=== PATIENT | female | born 1975 | race Caucasian/White ===

== ENCOUNTER 2018-05-30 02:47 | Emergency (ER) | payer SELFPAY ==
[2018-05-30] MEDS ORDERED: Bacitracin Zinc 1 Packet ONE (03:26)
[2018-05-30] MEDS ORDERED: Ibuprofen 200 MG TAB ONE (03:42)
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
== END 2018-05-30 03:45 | disposition home or self-care (01) ==
LOC: BURERS 02:47
DX: S02.2XXA Fracture of nasal bones, initial encounter for closed fracture (principal); S01.112A Laceration without foreign body of left eyelid and periocular area, initial encounter; S01.81XA Laceration without foreign body of other part of head, initial encounter; F17.210 Nicotine dependence, cigarettes, uncomplicated; Y04.0XXA Assault by unarmed brawl or fight, initial encounter
CPT/HCPCS: 12013; 70450; 70486

== ENCOUNTER 2021-03-02 20:11 | Emergency (ER) | payer SELFPAY ==
[2021-03-02] MEDS ORDERED: Rabies Vaccine Human 2.5 UNITS VIAL ONE ×2 (20:41→21:01)
== END 2021-03-02 21:27 | disposition home or self-care (01) ==
LOC: BURERS 20:11
DX: S61.452A Open bite of left hand, initial encounter (principal); S61.551A Open bite of right wrist, initial encounter; Z23 Encounter for immunization; W55.01XA Bitten by cat, initial encounter
CPT/HCPCS: 90375; 90376; 90471; 90675; 96372

== ENCOUNTER 2021-03-05 17:44 | Day surgery (SDC) | payer SELFPAY ==
[2021-03-05] MEDS ORDERED: Rabies Vaccine Human 2.5 UNITS VIAL ONE (18:11)
[2021-03-05 18:28] VITALS: BP 142/88; TEMP 99.2
== END 2021-03-05 17:45 | disposition home or self-care (01) ==
LOC: BUR/OP 17:44
PROVIDERS: ATTEND Emergency Medicine
DX: Z23 Encounter for immunization (principal)
CPT/HCPCS: 90675; 96372

== ENCOUNTER 2021-03-09 13:42 | Day surgery (SDC) | payer SELFPAY ==
[2021-03-09] MEDS ORDERED: Rabies Vaccine Human 2.5 UNITS VIAL IM ONE ×2 (14:00→15:00)
[2021-03-09] MEDS ORDERED: Rabies Vaccine Human 2.5 UNITS VIAL ONE (14:30)
== END 2021-03-09 15:07 | disposition home or self-care (01) ==
LOC: BUR/OP 13:42
PROVIDERS: ATTEND Emergency Medicine
DX: Z23 Encounter for immunization (principal)
CPT/HCPCS: 90675; 96372

== ENCOUNTER 2023-05-13 02:13 | Emergency (ER) | payer SELFPAY ==
[2023-05-13] MEDS ORDERED: Cephalexin 250 MG CAP ONE (02:41)
[2023-05-13] MEDS ORDERED: Sulfameth/Trimethoprim DS 800-160mg TAB ONE (02:41)
== END 2023-05-13 02:43 | disposition home or self-care (01) ==
LOC: BURERS 02:13
DX: L02.31 Cutaneous abscess of buttock (principal); F17.210 Nicotine dependence, cigarettes, uncomplicated
CPT/HCPCS: 99283